=== PATIENT | female | born 1940 | race Caucasian/White ===

== ENCOUNTER 2020-09-29 11:20 | Outpatient (RCR) | payer MEDICARE, OTHER, SELFPAY | END 2020-09-29 23:59 | LOC: IMMUN 11:20 | PROVIDERS: PCP Internal Medicine; Visit Provider Family Medicine | DX: Z23 Encounter for immunization (principal) | CPT/HCPCS: 0011A; 0012A; 91301 ==

== ENCOUNTER 2022-04-13 20:24 | Inpatient (IN) | payer MEDICARE, OTHER, SELFPAY ==
[2022-04-13 20:25] VITALS: BP 87/48; PULSE 63; RESP 16; TEMP 35.9; O2SAT 95; BMI 37.8
[2022-04-13 20:29] VITALS: BP 87/48; PULSE 62; RESP 18; O2SAT 86
--- NOTE | 2022-04-13 20:37 | EKG12_ITS ---
Test Reason : DYSRHYTHMIA Blood Pressure : / mmHG Vent. Rate : 056 BPM Atrial Rate : 056 BPM P-R Int : 148 ms QRS Dur : 072 ms QT Int : 478 ms P-R-T Axes : 050 010 082 degrees QTc Int : 461 ms Sinus bradycardia Septal infarct , age undetermined Abnormal ECG Confirmed by ERROL RÍOS, JUANJOSE ([id number]), web editor NIMISHA MURO ([id number]) on 04/15/2022 10:04:26 AM Referred By: Confirmed By:JUANJOSE NORTON MD
[2022-04-13 20:52] VITALS: BP 77/40; PULSE 56; RESP 18; O2SAT 99
[2022-04-13] MEDS: Ondansetron 4 MG/2 ML Vial IV (20:52)
[2022-04-13] MEDS: 0.9% Normal Saline 1,000 ML 1000 ML IV (20:52)
[2022-04-13 20:59] LABS: Absolute Lymphocyte Count 2.34 X10^3/uL (0.83-4.51); Absolute Neutrophil Count 7.8 X10^3/uL (2.0-7.7); Basophil# 0.06 X10^3/uL; Basophil% 0.5 % (0-1); Eosinophil# 0.11 X10^3/uL; Hematocrit 39.2 % (37-47); Hemoglobin 12.4 g/dL (12.0-15.0); Lymphocyte # 2.34 X10^3/ul (0.83-4.51); Lymphocyte % 20.7 % (19-41); Mean Corp Hgb Conc 31.6 g/dL (32-36); Mean Corpuscular Hgb 29.9 pg (27.0-32.0); Mean Corpuscular Volume 94.5 fL (81-99); Mean Platelet Vol. 9.4 fl (6.2-12.0); Monocyte# 0.87 X10^3/uL; Monocyte% 7.7 % (0-10); NRBC Flagged by Analyzer 0 % (0-5); Neutrophil # 7.81 X10^3/uL (2.7-7.7); Neutrophil % 69.3 % (47-70); Platelet Count 296 K/mm3 (150-450); RBC Distribution Width CV 13.3 % (11.6-14.6); RBC Distribution Width SD 46.5 fl (35.1-43.9); Red Blood Count 4.15 M/mm3 (4.2-5.4); White Blood Count 11.3 K/mm3 (4.4-11.0)
--- NOTE | 2022-04-13 21:02 | EX.ED.DYSGE1 ---
HPI History of Present Illness Chief Complaint: Nausea/Vomiting Informant: patient, family and EMS Narrative Narrative: 81-year-old female states that she has felt chilled most of the day. States she really had been feeling well so she laid in bed for the better half of the day. She then went out to get pizza for dinner. She began to have abdominal cramping and went to have a bowel movement. While awaiting the bowel movement she began to get nauseous and started vomiting and getting lightheaded. She states she was very diaphoretic and felt like passing out. Upon arrival to the emergency department patient had a very large diarrheal movement. She states that she is feeling better but still does not feel back to herself. She notes that she has had a slight cough and a headache. No reported fevers. PFSH PFSH Allergy/AdvReac Type Severity Reaction Status Date / Time Tactdof-XFO-DiS Reductase Allergy Hives Verified 04/13/22 20:25 Inhibitor Social History (Updated 04/13/22 @ 21:[address] Rj Reardon, DO) Smoking Status: Former smoker substance use type: does not use ROS ROS ED Constitutional Constitutional ED: Reports chills; Denies fever(s) or weight loss Eyes Eyes: Denies change in vision or diplopia ENT ENT ED: Denies ear pain, rhinorrhea or sore throat Cardiovascular Cardiovascular: Reports other Details: Near syncope, ; Denies chest pain, orthopnea, palpitations or racing heartbeat Respiratory/Chest Respiratory/Chest: Reports cough and other; Denies dyspnea or orthopnea Gastrointestinal Gastrointestinal: Reports diarrhea, nausea and vomiting; Denies abdominal pain Genitourinary Genitourinary ED: Denies dysuria, hematuria or urinary frequency Musculoskeletal Musculoskeletal: Denies arthralgias or myalgias Integumentary Denies abscess or rash Neurologic Neurologic: Reports headache(s); Denies weakness Psychiatric Psychiatric: Denies anxiety, depression, suicidal ideation or suicidal thoughts Endocrine Endocrinology: Denies polydipsia, polyphagia or polyuria Allergic/Immunologic Allergic/Immunologic ED: Denies mouth swelling, tongue swelling or urticaria EXAM Physical Exam Const Vital Signs: 04/13/22 20:25 04/13/22 20:29 04/13/22 20:52 Temperature 96.6 F L Temperature Source Temporal Pulse Rate 63 62 56 L Respiratory Rate 16 18 18 Blood Pressure 87/48 L 87/48 L 77/40 L Blood Pressure Mean 61 61 52 Pulse Ox 95 86 99 Oxygen Delivery Method Room Air Room Air Room Air 04/13/22 22:36 Temperature Temperature Source Pulse Rate 59 L Respiratory Rate 18 Blood Pressure 137/48 H Blood Pressure Mean 77 Pulse Ox 96 Oxygen Delivery Method Room Air Positive well nourished and well developed General Appearance ED: well developed HEENT Reports normocephalic, head/scalp atraumatic and moist mucous membranes Eyes PERRL and EOMs intact bilaterally Neck no lymphadenopathy, supple and no JVD Resp normal respiratory effort and clear to auscultation bilaterally Cardio regular rate, regular rhythm and no murmurs GI normal to inspection, nondistended, normoactive bowel sounds and non-tender Palpation: soft Back/Spine no CVA tenderness and normal ROM Extremity normal to inspection General Extremety ED: Negative for edema General Extremity: Negative for edema Neuro oriented x3 and CN's II-XII intact bilaterally Sensorium / Orientation: alert Motor Exam: strength 5/5 throughout Psych mental status grossly normal Mood & Affect: Negative for depressed or tearful Skin no rashes or lesions noted and no wounds MDM MDM MDM Narrative Medical decision making narrative: My interpretation of the chest x-ray is no acute process. Patient's white count 11.3. Glucose 224 creatinine 1.52. She received IV fluids. Patient's blood pressure got better until her next episode of diarrhea and then it got better. And then she dropped again with the third episode of diarrhea. Stool was sent to the lab and a covid 19 PCR was sent. Lab Data Attestation: I reviewed the patient's lab results. Labs: Laboratory Results - last 24 hr 04/13/22 04/13/22 20:50 20:50 WBC 11.3 H RBC 4.15 L Hgb 12.4 Hct 39.2 MCV 94.5 MCH 29.9 MCHC 31.6 L RDW Std Deviation 46.5 H RDW Coeff of Imelda 13.3 Plt Count 296 MPV 9.4 Immature Gran % (Auto) 0.800 Neut % (Auto) 69.3 Lymph % (Auto) 20.7 [place] % (Auto) 7.7 Eos % (Auto) 1.0 Baso % (Auto) 0.5 Absolute Neuts (auto) 7.8 H Absolute Lymphs (auto) 2.34 Nucleated RBC % 0 Sodium 134 L Potassium 4.5 Chloride 102 Carbon Dioxide 21.0 Anion Gap 11 BUN 25 H Creatinine 1.52 H Estim Creat Clear Calc 36.30 Est GFR (MDRD) Af Amer 42 L Est GFR (MDRD) Non-Af 35 L BUN/Creatinine Ratio 16.4 Glucose 224 H Calcium 9.1 Total Bilirubin 0.40 AST 18 ALT 16 Alkaline Phosphatase 64 Total Protein 6.7 Albumin 3.2 Globulin 3.5 Albumin/Globulin Ratio 0.9 Radiography Diagnostic Testing: Clinical Impression(s) from Imaging Studies Chest X-Ray 04/13/22 21:32 IMPRESSION: 1. No evidence of acute cardiopulmonary disease. Degenerative and postsurgical changes as above. Electronically Signed: Louie Curiel DO at 22:49 EDT , EKG Initial EKG: Attestation: I personally reviewed and interpreted this EKG as follows: Comments: Sinus bradycardia with a ventricular rate of 56 bpm Discharge Plan Dx/Rx/DC Orders Clinical Impression: Vomiting and diarrhea, Vasovagal near-syncope Disposition Disposition: Acute Care [facility]
[2022-04-13 21:15] LABS: ALB/GLOB Ratio 0.9 RATIO (0.9-2.4); AST(SGOT) 18 U/L (15-37); Alanine Aminotransfer ALT/SGPT 16 U/L (13-56); Albumin, Serum 3.2 g/dL (3.2-5.0); Alkaline Phosphatase 64 U/L (45-117); Anion Gap 11 (5-15); BUN 25 mg/dL (7-18); BUN/Creat Ratio 16.4 RATIO (10-20); Calcium,Total 9.1 mg/dL (8.5-10.1); Chloride 102 mmol/L (98-107); Creatinine, Serum 1.52 mg/dL (0.55-1.02); EST Glomerular Filtration Rate 35 mL/min (>60); Est Glom Filt Rate - Afr Amer 42 mL/min (>60); Globulin 3.5 g/dL (2.2-4.2); Glucose 224 mg/dL (74-106); Potassium 4.5 mmol/L (3.5-5.1); Protein, Total 6.7 g/dL (6.4-8.2); Sodium Level 134 mmol/L (136-145)
--- NOTE | 2022-04-13 21:32 | RAD_ITS ---
INDICATION: near syncope EXAMINATION/TECHNIQUE: X-RAY - XR Chest 1 View COMPARISON: None. FINDINGS: LINES/DEVICES: None. Distal sternotomy wires from prior thoracotomy. Probable coronary stent projects over the left heart. LUNGS: Symmetric normal lung volumes. No airspace opacity or abnormal interstitial pattern. No nodule or mass. No pleural effusion or pneumothorax. MEDIASTINUM AND CARDIOVASCULAR STRUCTURES: Normal size and contour of the cardiomediastinal silhouette. No evidence of pulmonary vascular congestion. BONES AND SOFT TISSUES: No fracture or focal osseous lesion. Incompletely visualized spinal hardware. Significant degenerative changes bilateral shoulders. RAD/Chest 1 View (Portable) IMPRESSION: 1. No evidence of acute cardiopulmonary disease. Degenerative and postsurgical changes as above. Electronically Signed: Louie Curiel DO at 22:49 EDT ,
[2022-04-13 22:36] VITALS: BP 137/48; PULSE 59; RESP 18; O2SAT 96
[2022-04-13] MEDS: 0.9% Normal Saline 1,000 ML 999 ML IV (22:52)
[2022-04-13 22:55] VITALS: BP 122/86; PULSE 55; RESP 18; TEMP 36.7; O2SAT 99
--- NOTE | 2022-04-13 23:12 | HP.PCM.HOS_ITS ---
HPI - General General Date of Admission: 04/13/22 Date of Service: 04/13/22 Chief Complaint: Nausea, diarrhea. Patient also has episodes of hypotension and bradycardia, vasovagal attack HPI Narrative EMILI CAMACHO, is a 81 F who was brought to ED by EMS for nausea and diarrhea in the restaurant. Prior to that, she was feeling cold throughout the day and not feeling well. She went with the family for dinner in restaurant. After they h ave finished dinner, [place] she felt abdominal cramps did not feel good and went to bathroom. There, she did not had diarrhea but felt nauseated. After that in ED, she had 3 bouts of liquid watery bowel movement with no blood or mucus. She did not had vomiting. She was very diaphoretic, feeling like going to pass out. She has mild cough and headache. EMS vitals reported BP 77/50, heart rate 67/min, regular pulse ox 95% on room air. In ED, her vitals shows BP 87/48, heart rate 63, dropped 1 time 77/40, heart rate 56 and then improved to BP 137/48 heart rate 59 after volume resuscitation. Her heart rate and blood pressure drops on abdominal cramps and retching. She never had similar episode in the past. She has history of CABG and 5 stents and CHF. 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 She does not have any echo or other cardiac work-up in our record. In ED, twelve-lead EKG individually reviewed shows sinus bradycardia 56 bpm, QTC 461 ms, CT 148 ms. Chest x-ray independently reviewed and no evidence of acute cardiopulmonary abnormality. Labs reviewed and discussed in assessment and plan. PFSH Allergy/AdvReac Type Severity Reaction Status Date / Time [id number]-[id number] Reductase Allergy Hives Verified 04/13/22 20:25 Inhibitor Social History Smoking Status: Former smoker substance use type: does not use ROS ROS Narrative Constitutional: Reports fatigue and weakness. Extreme cold, mild cough and headache. HEENT: Reports systems reviewed and no addt'l complaints, except as documented Respiratory/Chest: Denies chest pain, chronic shortness of breath/dyspnea on exertion. Gastrointestinal: Denies coffee ground emesis, hematemesis or vomiting Genitourinary: Denies burning urination or new urinary tract symptoms Musculoskeletal: Right TKR. Bilateral hip and knee arthritis. Multiple fall, walks on wheeled walker. Does not climb stairs Neurologic: Denies seizure-like activity. No new weakness, numbness skin: No ulcer. No rash Endocrinology: Reports systems reviewed and no addt'l complaints, except as documented Hematologic/Lymphatic: Reports systems reviewed and no addt'l complaints, except as documented Rest 14 ROS are negative except as mentioned in HPI Vital Signs Vital Signs Vital Signs: 04/13/22 20:25 04/13/22 20:29 04/13/22 20:52 Temperature 96.6 F L Temperature Source Temporal Pulse Rate 63 62 56 L Respiratory Rate 16 18 18 Blood Pressure 87/48 L 87/48 L 77/40 L Blood Pressure Mean 61 61 52 Pulse Ox 95 86 99 Oxygen Delivery Method Room Air Room Air Room Air 04/13/22 22:36 04/13/22 22:55 Temperature 98.1 F Temperature Source Oral Pulse Rate 59 L 55 L Respiratory Rate 18 18 Blood Pressure 137/48 H 122/86 H Blood Pressure Mean 77 98 Pulse Ox 96 99 Oxygen Delivery Method Room Air Room Air Weight Weight: 180 lb 12.465 oz Body Mass Index (BMI) 37.8 Physical Exam Narrative General: Alert, Oriented x3, Cooperative, dehydrated HEENT: Atraumatic, PERRLA, EOMI, Normocephalic Oral: Oral mucosa dry. No Gingival or Mucosal Lesions/ Ulcerations Neck: Supple, No JVD, Negative Carotid Bruits Lungs: Air entry diminished in bilateral lung bases. No crepitation/rhonchi/wheezing. No hypoxia Cardiovascular: CABG scar. No pacemaker. Regular rate, Regular Rhythm, Normal S1, Normal S2, grade 4/6 early diastolic murmur over right second ICS, left second ICS. Systolic murmur over cardiac apex. Abdomen: Bowel Sounds Present, Soft, Non Tender, Non-Distended : No renal angle tenderness. No suprapubic tenderness. Extremities: Mild 1+ bilateral ankle edema, Capillary Refill Less than 3 Seconds Skin: No rashes, No breakdown Musculoskeletal: Right TKR scar. No Tenderness to Palpation of Joints or Extre mities Neurological: Cranial nerves II-XII grossly intact, DTR 2+/4 and Symmetrical, Neuro grossly intact Psych/Mental Status: Flat affect. Results Lab / Micro Data Result Diagrams: 04/13/22 20:50 04/13/22 20:50 Labs: Laboratory Results - last 24 hr 04/13/22 20:50: WBC 11.3 H, RBC 4.15 L, Hgb 12.4, Hct 39.2, MCV 94.5, MCH 29.9, MCHC 31.6 L, RDW Std Deviation 46.5 H, RDW Coeff of Imelda 13.3, Plt Count 296, MPV 9.4, Immature Gran % (Auto) 0.800, Neut % (Auto) 69.3, Lymph % (Auto) 20.7, [place] % (Auto) 7.7, Eos % (Auto) 1.0, Baso % (Auto) 0.5, Absolute Neuts (auto) 7.8 H, Absolute Lymphs (auto) 2.34, Nucleated RBC % 0 04/13/22 20:50: Sodium 134 L, Potassium 4.5, Chloride 102, Carbon Dioxide 21.0, Anion Gap 11, BUN 25 H, Creatinine 1.52 H, Estim Creat Clear Calc 36.30, Est GFR (MDRD) Af Amer 42 L, Est GFR (MDRD) Non-Af 35 L, BUN/Creatinine Ratio 16.4, Glucose 224 H, Calcium 9.1, Total Bilirubin 0.40, AST 18, ALT 16, Alkaline Phosphatase 64, Total Protein 6.7, Albumin 3.2, Globulin 3.5, Albumin/Globulin Ratio 0.9 Micro: Microbiology 04/13/22 20:50 Nasal Secretion SARS-CoV-2 Antigen (Rapid) - Final Radiology Impression Chest X-Ray 04/13/22 21:32 IMPRESSION: 1. No evidence of acute cardiopulmonary disease. Degenerative and postsurgical changes as above. Electronically Signed: Louie Curiel DO at 22:49 EDT , Assessment & Plan Assessment/Plan (1) Vasovagal near-syncope: (2) Acute gastroenteritis: PLAN: Plan This is a 81-year-old female admitted with severe diarrhea, nausea and increased exaggerated vasovagal reflex 1. Hypotension and bradycardia probably exacerbated vasovagal reflex from abdominal retching/cramps: Patient is being admitted in PCU for monitoring. Hold antihypertensive and other cardiac medications. IV fluid volume resuscitation. 2. Acute gastroenteritis probably viral infective: Patient other family members who ate victor manuel are not sick. Stool for C. difficile, occult blood, leukocytes, enteric bacterial panel and COVID PCR ordered. IV fluid volume resuscitation with Ringer lactate. Monitor intake and output. Monitor for volume overload. Diet full liquid and advance as per tolerated. 3. 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 She does not have chest pain. Chronically she is mild short of breath mainly on exertion with low functional capacity. PT and OT ordered. Reconciliation order does not show any home medications. 4. Elevated BUN/creatinine, unclear whether acute or chronic but suspect acute in view of hypokalemia: BUN 25, creatinine 1.52. No prior BUN/creatinine in our system. Mild hyponatremia sodium 134. Patient had IV fluid normal saline ED started on Ringer lactate. 5. Diabetes mellitus type 2: Glucose 224. Accu-Chek insulin is covered with Humalog sliding scale Living will/advanced directive/end of life care: Patient does have living will or advanced directive. His son is power of erisa attorney for health. After discussion of benefits/risks procedures involved with full code, DNR CC arrest and DNR CC, the patient patient is DNR CC arrest with no intubation and living will. Patient and 2 sons near the bedside agreed with that. Patient doesn't want artificial life support including intubation, tube feed, ventilator and/chest compression, central venous catheter, vasopressor and DC shock if needed Total time spent in [id number] encounter in discussion of advanced directive 16 minutes. 04/13/22 20:50: WBC 11.3 H, RBC 4.15 L, Hgb 12.4, Hct 39.2, MCV 94.5, MCH 29.9, MCHC 31.6 L, RDW Std Deviation 46.5 H, RDW Coeff of Imelda 13.3, Plt Count 296, MPV 9.4, Immature Gran % (Auto) 0.800, Neut % (Auto) 69.3, Lymph % (Auto) 20.7, [place] % (Auto) 7.7, Eos % (Auto) 1.0, Baso % (Auto) 0.5, Absolute Neuts (auto) 7.8 H, Absolute Lymphs (auto) 2.34, Nucleated RBC % 0 04/13/22 20:50: Sodium 134 L, Potassium 4.5, Chloride 102, Carbon Dioxide 21.0, Anion Gap 11, BUN 25 H, Creatinine 1.52 H, Estim Creat Clear Calc 36.30, Est GFR (MDRD) Af Amer 42 L, Est GFR (MDRD) Non-Af 35 L, BUN/Creatinine Ratio 16.4, Glucose 224 H, Calcium 9.1, Total Bilirubin 0.40, AST 18, ALT 16, Alkaline P hosphatase 64, Total Protein 6.7, Albumin 3.2, Globulin 3.5, Albumin/Globulin Ratio 0.9 Charges/Coding Visit Charges OBSV E&M: 20119 Initial observation care L3 Procedures Hospitalists Procedures: [id number] Advncd Care Plan 30 Min
[2022-04-14] VITALS (24 sets, daily range): BP systolic 92–179; BP diastolic 47–90; PULSE 73–117; RESP 18–28; TEMP 36.6–37.1; O2SAT 95–100; BMI 36.8
[2022-04-14 00:08] LABS: Magnesium 1.5 mg/dL (1.6-2.6); Phosphorus 4.2 mg/dL (2.5-4.9)
[2022-04-14] MEDS: Lactated Ringers 1,000 ML 125 ML IV ×2 (00:28→06:45)
--- NOTE | 2022-04-14 05:03 | EKG12_ITS ---
Test Reason : arrythmia Blood Pressure : / mmHG Vent. Rate : 100 BPM Atrial Rate : 100 BPM P-R Int : 158 ms QRS Dur : 084 ms QT Int : 352 ms P-R-T Axes : 060 014 125 degrees QTc Int : 454 ms Normal sinus rhythm Possible Left atrial enlargement Septal infarct , age undetermined ST & T wave abnormality, consider inferolateral ischemia Abnormal ECG Confirmed by SHLOMO RÍOS, ANA ([id number]), mapping editor NIMISHA MURO ([id number]) on 04/15/2022 2:04:17 PM Referred By: Jorge Confirmed By:ANA KEENAN MD
--- NOTE | 2022-04-14 05:04 | NURSING ---
Patient has change in ST segment on tele monitor. On assessment patient is c/o heartburn and just not feeling well. VSS. RT called and notified that PRN 12-lead EKG ordered. Will notify Dr. Zaman with 12 lead once completed by RT.
[2022-04-14] MEDS: Enoxaparin 30 MG/0.3 ML Syringe SC (06:17)
[2022-04-14 06:40] LABS: Bedside Glucose 191 mg/dL (74-106)
[2022-04-14] MEDS: Insulin Lispro 100 UNIT/ML INSULN.PEN SC (06:45)
[2022-04-14 07:00] LABS: Absolute Lymphocyte Count 0.67 X10^3/uL (0.83-4.51); Absolute Neutrophil Count 16.1 X10^3/uL (2.0-7.7); Basophil# 0.04 X10^3/uL; Basophil% 0.2 % (0-1); Hematocrit 33.2 % (37-47); Hemoglobin 10.8 g/dL (12.0-15.0); Lymphocyte # 0.67 X10^3/ul (0.83-4.51); Lymphocyte % 3.7 % (19-41); Mean Corp Hgb Conc 32.5 g/dL (32-36); Mean Corpuscular Hgb 29.9 pg (27.0-32.0); Mean Platelet Vol. 9.4 fl (6.2-12.0); Monocyte# 1.34 X10^3/uL; Monocyte% 7.3 % (0-10); NRBC Flagged by Analyzer 0 % (0-5); Neutrophil % 88.3 % (47-70); Platelet Count 273 K/mm3 (150-450); RBC Distribution Width CV 13.2 % (11.6-14.6); RBC Distribution Width SD 44.6 fl (35.1-43.9); Red Blood Count 3.61 M/mm3 (4.2-5.4); White Blood Count 18.2 K/mm3 (4.4-11.0)
[2022-04-14 07:15] LABS: Anion Gap 9 (5-15); BUN 30 mg/dL (7-18); BUN/Creat Ratio 20.8 RATIO (10-20); Calcium,Total 8.6 mg/dL (8.5-10.1); Chloride 103 mmol/L (98-107); Creatinine, Serum 1.44 mg/dL (0.55-1.02); EST Glomerular Filtration Rate 37 mL/min (>60); Est Glom Filt Rate - Afr Amer 45 mL/min (>60); Estimated Creatinine Clearance 36.73 ml/min; Glucose 191 mg/dL (74-106); Magnesium 1.2 mg/dL (1.6-2.6); Potassium 4.6 mmol/L (3.5-5.1); Sodium Level 132 mmol/L (136-145)
--- NOTE | 2022-04-14 08:40 | PN.HOSP_ITS ---
Subjective Subjective Patient reports ongoing abdominal generalized discomfort, worse in the lower quadrants with still some loose stools but lessened since initial ED presentation. Did discuss the fact the patient had onset of chest discomfort earlier in the morning at approximately 5:20 AM and she notes that this did seem to improve with dyspepsia medications, currently denying any further episodes of chest pain. Discussed patient with nursing staff and they did report a small amount of blood in her diarrhea previously. Discussed concerns over her EKG early in the morning with repeat performed which does appear improved but c onsiderable changes therefore plan of action instituted with cardiology consultation with discussion with Dr. Gutierrez and Dr. Osborne, aspirin load, Brilinta load, heparin bolus with drip with continued close monitoring given reported gastritis with potential blood in the stool with continued close hemoglobin monitoring. Patient understands this plan of care and at this time will remain n.p.o. and if any further concerns from a cardiac standpoint arise or recurrent chest pain will be taken to the cardiac catheterization lab. Patient denies fevers, chills, nausea, emesis as well as specifically dyspnea at time of evaluation but at approximately 11 AM further in the day she did have onset of some dyspnea. Objective Data Objective Data Vital Signs: Vital Signs Temp Pulse Resp BP Pulse Ox O2 Del Method 98.6 F 73 18 96/56 L 98 Room Air 04/14/22 09:02 04/14/22 09:02 04/14/22 09:02 04/14/22 09:02 04/14/22 09:02 04/14/22 09:02 Oxygen Delivery Method Room Air Weight: 173 lb 4.533 oz Body Mass Index (BMI) 36.8 Intake & Output: Intake and Output for Last 24 Hours 04/12/22 04/13/22 04/14/22 23:59 23:59 23:59 Intake Total 1999 1799.42 / 1799.42 Output Total Balance 1999 1797.42 / 1797.42 Lab / Micro Data Result Diagrams: 04/14/22 06:50 04/14/22 06:50 Labs: Laboratory Results - last 24 hr 04/13/22 20:50: WBC 11.3 H, RBC 4.15 L, Hgb 12.4, Hct 39.2, MCV 94.5, MCH 29.9, MCHC 31.6 L, RDW Std Deviation 46.5 H, RDW Coeff of Imelda 13.3, Plt Count 296, MPV 9.4, Immature Gran % (Auto) 0.800, Neut % (Auto) 69.3, Lymph % (Auto) 20.7, Rock % (Auto) 7.7, Eos % (Auto) 1.0, Baso % (Auto) 0.5, Absolute Neuts (auto) 7.8 H, Absolute Lymphs (auto) 2.34, Nucleated RBC % 0 04/13/22 20:50: Sodium 134 L, Potassium 4.5, Chloride 102, Carbon Dioxide 21.0, Anion Gap 11, BUN 25 H, Creatinine 1.52 H, Estim Creat Clear Calc 36.30, Est GFR (MDRD) Af Amer 42 L, Est GFR (MDRD) Non-Af 35 L, BUN/Creatinine Ratio 16.4, Glucose 224 H, Calcium 9.1, Total Bilirubin 0.40, AST 18, ALT 16, Alkaline Phosphatase 64, Total Protein 6.7, Albumin 3.2, Globulin 3.5, Albumin/Globulin Ratio 0.9 04/13/22 20:50: Phosphorus 4.2, Magnesium 1.5 L 04/13/22 22:58: COVID-19 (CHARLIE) Not Detected 04/14/22 06:13: POC Glucose 191 H 04/14/22 06:50: WBC 18.2 H, RBC 3.61 L, Hgb 10.8 L, Hct 33.2 L, MCV 92.0, MCH 29.9, MCHC 32.5, RDW Std Deviation 44.6 H, RDW Coeff of Imelda 13.2, Plt Count 273, MPV 9.4, Immature Gran % (Auto) 0.500, Neut % (Auto) 88.3 H, Lymph % (Auto) 3.7 L, Rock % (Auto) 7.3, Eos % (Auto) 0.0, Baso % (Auto) 0.2, Absolute Neuts (auto) 16.1 H, Absolute Lymphs (auto) 0.67 L, Nucleated RBC % 0 04/14/22 06:50: Sodium 132 L, Potassium 4.6, Chloride 103, Carbon Dioxide 20.0 L , Anion Gap 9, BUN 30 H, Creatinine 1.44 H, Estim Creat Clear Calc 36.73, Est GFR (MDRD) Af Amer 45 L, Est GFR (MDRD) Non-Af 37 L, BUN/Creatinine Ratio 20.8 H , Glucose 191 H, Calcium 8.6 04/14/22 06:50: Magnesium 1.2 L 04/14/22 06:50: B-Natriuretic Peptide 150.4 H 04/14/22 08:40: Troponin I High Sens 1998 H* 04/14/22 08:40: Magnesium 1.8 04/14/22 09:00: PT 14.3, INR 1.1, APTT 33.5 Micro: Microbiology 04/13/22 22:37 Stool Stool Lactoferrin - Final 04/13/22 22:37 Stool Enteric Bacteriology - Final 04/13/22 22:37 Stool C. difficile DNA Amplification - Final 04/13/22 20:50 Nasal Secretion SARS-CoV-2 Antigen (Rapid) - Final Radiography Diagnostic Testing: Radiology Impression Chest X-Ray 04/13/22 21:32 IMPRESSION: 1. No evidence of acute cardiopulmonary disease. Degenerative and postsurgical changes as above. Electronically Signed: Louie Curiel DO at 22:49 EDT , Physical Exam Narrative Physical Examination: General: Awake, alert, oriented x 3 and cooperative, seated upright in the PCU bed, fatigued, denies any current chest discomfort, recent loose stool with some lower abdominal cramping but improved now. Skin: Normal color, normal turgor, no icterus, no cyanosis except for occasional staged ecchymoses. HEENT: AT/NC, EOMI, PERRLA, moderately dry MM. Lungs: Diminished, greater bases, appropriate effort, no rales, ronchi or wheezing. Heart: Currently regular rate and rhythm; no gallop, rub audible, + notable . Abdomen: Soft, obese, generalized discomfort, potentially worse in the lower quadrants but no rebound or guarding, moderately distended, tympanitic, hyperac tive bowel sounds. Extremities: No cyanosis, clubbing, or edema. Neurological: Patient awake, alert, oriented as noted, cognitive function intact; pupils equally reactive to light and accommodation, cranial nerves II- XII grossly normal, moving all 4 extremities, no focal deficits, strength moderately to severely global decrease secondary to acute presentation and suspected underlying cardiac event. Psychiatric: Affect appears fatigued, no acute evidence of depressive or anxiety feelings. Assessment & Plan Assessment/Plan (1) NSTEMI, initial episode of care: PLAN: Plan The patient is an 81 y/o F w/ PMHx: Anxiety and Depression, Diastolic CHF, CAD s/p CABG x 4 and PCI, HTN, HLD, Diabetes mellitus type II, Former tobacco use, Chronic normocytic anemia, CKD stage III unclear subtype who presents to the [facility] ED on 04/13/22 with history of recently eating in a restaurant with her family with onset of significant abdominal cramps with nausea and liquidy watery bowel movements with episode of hypotension, bradycardia and vasovagal prompting ED evaluation. #1. Chest Pain w/ Acute NSTEMI with concern for Acute Decompensated concurrent Diastolic CHF exacerbation/ischemic cardiomyopathy associated with acute injury: EKG w/ significant diffuse ischemic changes noted on EKG at 5:25 AM sign ificantly changed from admission EKG which was noted to be significant for sinus bradycardia only with no acute evidence of ischemia at that time therefore repeat immediate stat 8:30 AM repeat EKG obtained and fortunately appeared somewhat improved. Given significant findings immediately gave patient full- strength aspirin, initiated heparin drip with bolus as well as a Brilinta load and immediately reviewed EKGs with Dr. Osborne, cardiology and also immediately contacted Dr. Gutierrez on STEMI call who reviewed EKGs and felt that patient was not consistent with a STEMI but certainly had significant ischemic findings and recommended medical therapy. Given patient history of small amount of blood with her diarrhea we will maintain on cycled H&H's and closely monitor output which was discussed with nursing staff. Troponin obtained in initial 1997 with most recent repeat 3230. At approximately 11:30 AM patient became dyspneic therefore Dr. Osborne administered Lasix 20 mg IV x1 and given blood pressures are appropriate at this time will transition to the ICU for a nitroglycerin drip usage with small battery plate assembler consulation also requested. Will place on BIPAP also to assist. Will request small battery plate assembler consultation. Admission magnesium low 1.5 with supplementation overnight given, repeat this morning 1.8. FLP requested. BNP obtained and noted be 150.4. Echocardiogram requested w/ last noted [facility] system ECHO 09/14/19 with mildly increased wall LV thickness, normal cavity size, normal systolic function, EF 60 to 65%, no regional wall motion abnormalities, aortic valve with transvalvular velocity increased with mild stenosis, 1+ regurgitation, mean systolic gradient 13 mmHg, peak systolic gradient 26 mmHg, mitral valve moderately calcified, mild MR, mildly dilated LA, RVSP 31 mmHg, mild PV regurgitation, mild TV regurgitation, RA pressure 10 mmHg. Will maintain n.p.o. status, given plan diuresis initial judicious IV fluids have been discontinued. Low threshold for patient to be transition to cardiac catheterization lab per discussion with corporate claims examiner team. Fortunately was able to obtain records from clinic [facility] system on most recent cardiac intervention history. ASA, NG, morphine. #2. N/V/D, Gastroenteritis: Upon presentation patient history initially concern for gastroenteritis, unclear potentially related with #1 or food related, enteric panel negative, C. difficile negative, initiated on antidiarrheal regimen, initially hydrated however given onset of mild overload is noted number 1 will discontinue and continue to closely monitor. Patient WBC with significant elevation with left shift therefore be cautious IV Zosyn therapy has been initiated. Patient currently with no rebound or guarding and generalized discomfort to the abdomen on exam and given acute presentation #1 we will hold off on immediate imaging. Will obtain lactic acid level. Will maintain on IV PPI while n.p.o. status and given #2. #3. Acute on Chronic anemia, normocytic in the setting of #2: Complicates presentation, admission hemoglobin was 12.4 but she was notably dehydrated at that time, repeat a.m. 04/14/2022 hemoglobin 10.8, given some blood noted in the diarrhea will cycle H&H's to be cautious especially given medications administered given significant #1 presentation. Currently maintained also on IV PPI with n.p.o. status. #4. CAD: From [facility] records, patient s/p Annette 06/17/2007 w/ GAINES to LAD, v to PDA, v to Dg and free left radial to OM and PCI stents at F 01/25/[address] Clarence Merritt GIOVANNA to RI and to 1st Dg and PCI 3 stents to prox , mid and distal RCA 05/15/2009, will continue asa, brillinta loaded as noted as unclear regimen initially, from records pulled patient on daily plavix only from current list, holding metoprolol, lisinopril given hypotension and going to attempt as noted NG usage, statin allergy noted, continue zetia, continue Ranexa. #5. Hypertension: Although patient's blood pressure improved initial presentation with vasovagal event following IV fluids it is still on the low threshold, attempting as noted transition to the ICU for nitroglycerin usage, holding patient home regimen which from now review of outpatient record include (Norvasc, bumetanide, isosorbide, lisinopril, metoprolol). We will add these b ack as able. #6. Hyperlipidemia: We will continue patient home Zetia regimen, statin intolerance noted, FLP in AM. #7. Diabetes mellitus type II: Hold oral home regimen, will currently maintain n.p.o. status, while n.p.o. we will continue accu checks w/ ISS. #8. Chronic Kidney Disease Stage III, unclear subtype: Admission BUN/Cr 25/1.52, baseline renal function from review of labs per Dr. Salas range 1.3-1.5 primarily, repeat BMP in AM. #9. Anxiety and depression: We will continue patient home citalopram regimen. #10. GERD: As noted placed on IV PPI. #11. Former tobacco use: Encourage continued tobacco cessation. #12. DVT prophylaxis: SCDs, heparin bolus and drip initiated as noted and continued with close continued hemoglobin trending and monitoring of bowel functions. #13. CODE status: Patient ADAMA is her son and living will is currently in place. DNR-CCA, no intubation status. Charges/Coding Visit Charges Inpatient E&M: 43957 Subs Hosp L3
[2022-04-14] MEDS: Aspirin 325 MG Tablet PO (08:55)
--- NOTE | 2022-04-14 08:55 | EKG12_ITS ---
Test Reason : Dysrhythmia Blood Pressure : / mmHG Vent. Rate : 107 BPM Atrial Rate : 107 BPM P-R Int : 162 ms QRS Dur : 094 ms QT Int : 332 ms P-R-T Axes : 074 009 196 degrees QTc Int : 443 ms Sinus tachycardia Septal infarct (cited on or before 10-DEC-2010) Marked ST abnormality, possible inferior subendocardial injury Marked ST abnormality, possible anterolateral subendocardial injury Abnormal ECG Confirmed by SHLOMO RÍOS, ANA ([id number]), art editor NIMISHA MURO ([id number]) on 04/15/2022 2:04:39 PM Referred By: Austyn Confirmed By:ANA KEENAN MD
[2022-04-14] MEDS: TICAGRELOR 90 MG TABLET 180 MG PO (09:19)
[2022-04-14 09:24] LABS: Troponin-I HS 1998 pg/mL (3.0-54.0)
[2022-04-14 09:25] LABS: BNP,B-Type NATRIURETIC PEPTIDE 150.4 pg/mL (0-100)
[2022-04-14 09:34] LABS: International Normalized Ratio 1.1; Prothrombin Time (Protime)PT. 14.3 SECONDS (11.7-14.9)
[2022-04-14 09:35] LABS: Partial Thromboplast Time 33.5 Seconds (24.1-36.2)
[2022-04-14] MEDS: HEPARIN/D5w 25,000 UNITS 25,000 UNITS/250 ML IV.SOLN. 11 UNITS CONT INF (09:49)
[2022-04-14] MEDS: Heparin Injection (Vial) 5,000 UNIT/ML VIAL 5000 UNIT IV (09:49)
[2022-04-14 10:16] LABS: Magnesium 1.8 mg/dL (1.6-2.6)
[2022-04-14] MEDS: 0.9% Normal Saline 1,000 ML 75 ML IV (11:00)
[2022-04-14 11:05] LABS: Troponin-I HS 3230 pg/mL (3.0-54.0)
[2022-04-14 11:31] LABS: Bedside Glucose 165 mg/dL (74-106)
--- NOTE | 2022-04-14 11:48 | CON.PCM.CA_ITS ---
Assessment & Plan Assessment/Plan (1) NSTEMI, initial episode of care: PLAN: The patient has demonstrated findings based upon her symptoms and her objective studies compatible with an acute non-ST segment elevation VA. The patient has been monitored. She will continue to be monitored and have follow-up cardiac enzymes and ECGs as deemed appropriate. The patient can have additional noninvasive and invasive studies as deemed appropriate. The patient's case was discussed with Dr. Gutierrez of interventional cardiology. At the present time he recommended continued medical management and monitoring and did not recommend urgent/emergent diagnostic cardiac catheterization barring a change in the patient's clinical course. Thus, the patient will continue medical therapy which will include agents such as aspirin, antiplatelets, anticoagulants, nitrates as needed, beta-blockers, lipid-lowering agents, etc. If the patient's clinical course alters that she may need to be considered for cardiac catheterization sooner than later. Also consideration will have to be given, based upon her extensive cardiovascular history as to whether such a procedure would be performed at [facility] versus requesting transfer to a tertiary care center for additional evaluation and care. (2) Aortic valve stenosis, acquired: PLAN: The patient does have a history of aortic valve stenosis based upon ex amination and her previous noninvasive and invasive studies available for review. At the moment she will continue to be followed. It would not be unreasonable to continue to monitor this with echocardiographic studies for progression of disease. (3) HLD (hyperlipidemia): PLAN: The patient should continue lipid-lowering therapy as tolerated. (4) HTN (hypertension): PLAN: The patient's blood pressure should be monitored. She will continue medical management with adjustment as needed (5) Acute gastroenteritis: PLAN: The patient presented with concerns of acute gastroenteritis. It is unclear as to whether this is all related to her acute non-ST segment elevation VA versus a separate condition exacerbated her underlying cardiovascular condition leading to her acute non-ST segment elevation VA. At the moment she will have to be monitored for any recurrent symptoms especially any hemorrhagic issues as she is starting antiplatelet and anticoagulant therapy. Addt'l Comments The patient's case was discussed and reviewed with the patient, Dr. Patel, and Dr. Gutierrez of interventional cardiology. This note was generated using a voice recognition system and there may be incorrect words, spelling or punctuation that were not noted when reviewing the office note prior to saving. HPI Consult Data Date of Consult: 04/14/22 HPI Narrative HPI Narrative: EMILI CAMACHO, is a 81 year old white female who presents for cardiovascular consultation based upon concerns of symptoms of heartburn , findings of abnormal cardiac enzymes, superimposed upon a history of underlying CAD, multiple PCI procedures, CABG, valvular heart disease/aortic valve stenosis, hyperlipidemia, and hypertension, who presented with concerns of gastrointestinal discomfort with nausea, emesis, loose bowel movements with hematochezia. She states that she had developed what she considers to be heartburn the associated abdominal symptoms. She felt as if she might lose consciousness but does not believe she did lose consciousness. She subsequently presented to [facility] emergency department for additional evaluation and care. It appears there were concerns that she may have been experiencing a gastroenteritis. She was placed in the room for further evaluation and care. Initially from a cardiac standpoint the that demonstrated sinus bradycardia, septal VA of indeterminate age, and no definitive acute electrocardiographic changes. He had a follow-up ECG from this a.m. At that time she demonstrated findings compatible with sinus tachycardia with a septal VA of indeterminate age and associated ST and T wave abnormalities appearing compatible for concerns of subendocardial injury in the jjwrmzhh-yqbcbtm-pkblnldz leads as well as an element of ST segment elevation in isolated lead aVR. She was evaluated by internal medicine. At that time she was not complaining of her ongoing heartburn. She stated she felt somewhat improved compared to her previous presentation/symptoms. A request was made for cardiac enzyme levels and a follow-up ECG. A follow-up ECG was performed. At that time she was noted to be in sinus rhythm with the aforementioned septal VA of indeterminate age pattern and continued evidence of ST and T wave abnormalities-compared to her previous ECG they appear to be less prominent with respect to concerns of the subendocardial injury pattern in the feugxuke-fnhokfg-cdqblxlh leads as well as the aforementioned ST segment elevation in isolated lead aVR. She was initiated on additional cardiovascular medical therapy which included aspirin, antiplatelet therapy, and anticoagulant therapy. Cardiovascular consultation was requested. At the time of cardiovascular consultation the patient stated she was not having her ongoing heartburn sensation. She stated overall she felt better than her initial presentation. She did note that with her previous cardiovascular presentation she did have heartburn . She was not complaining of ongoing acute shortness of breath/dyspnea, ongoing nausea/emesis, or diaphoresis. The patient states she has been taking her cardiac medications as prescribed. She is not sure if she took her antiplatelet therapy with respect to clopidog rel/Plavix yesterday. Subsequently her cardiac enzymes were noted. Her initial high-sensitivity tr oponin I level was reported at 1997 with a subsequent level of 3230. The patient stated she has undergone previous cardiovascular evaluation which included a combination of PCI and CABG. Based upon medical records available it appears that the patient underwent evaluation and care at [facility] in [place], [place] on 06-17-2007 with a CABG. At that point in time she received a GAINES to the LAD, and SVG to the diagonal branch, a free radial to the OM branch, and an SVG to the PDA. It appears over time she has had multiple repeat cardiac catheterization procedures at various institutions she states has included [facility], [facility] in [place], [place], as well as [facility]. According to information available a cardiac catheterization was performed on 01-03-2009 which demonstrated her GAINES to the LAD to be patent and the other 3 grafts to be occluded with an LVEF of 60 to 65%. It appears she proceeded with a [facility] PCI on 01-25-2009 with a Xience drug-eluting stent to the ramus intermedius and to the first diagonal branch. It appears she had a repeat cardiac catheterization/PCI procedure on 05-15-2009 where she received PCI/stents to the RCA system. Another cardiac catheterization was listed on 09-26-2009. At that time a comment is made that the LAD had mid 90% stenosis and the GAINES to the LAD was patent, and there was mild disease in other vessels . A cardiac catheterization procedure was reported on 08-05-2012 at [facility] in [place], [place]. At that point in time the GAINES to the LAD was patent with distal LAD 99% stenosis with mild CAD elsewhere . The LVEF was listed at 60%. On 09-08-2018 apparently underwent a right/left cardiac catheterization. GAINES to the LAD was patent. The other 3 grafts were occluded. There was severe three-vessel CAD. There was normal LV systolic function. There was minimal aortic valve stenosis reported. She states she follows with the cardiovascular team from [facility], in [facility] Medical History (Updated 04/14/22 @ 12:[address] Rafael Osborne MD) CAD (coronary artery disease) Chronic anemia CKD (chronic kidney disease), stage III Diabetes mellitus, type 2 Diastolic CHF Former tobacco use GERD (gastroesophageal reflux disease) Glaucoma HLD (hyperlipidemia) HTN (hypertension) Home Medications amlodipine 5 mg tablet 5 mg PO DAILY Check with primary doctor 04/14/22 [History Last Taken Unknown] citalopram 20 mg tablet 20 mg PO DAILY Check with primary doctor 04/14/22 [H istory Last Taken Unknown] clopidogrel 75 mg tablet 75 mg PO DAILY Check with primary doctor 04/14/22 [History Last Taken Unknown] isosorbide mononitrate 60 mg tablet,extended release 24 hr 60 mg PO BID Check with primary doctor 04/14/22 [History Last Taken Unknown] latanoprost 0.005 % eye drops 1 drp EACH EYE QHS Check with primary doctor 04/14/22 [History Last Taken Unknown] lisinopril 20 mg tablet 20 mg PO DAILY Check with primary doctor 04/14/22 [History Last Taken Unknown] metformin 500 mg tablet 500 mg PO BID Check with primary doctor 04/14/22 [History Last Taken Unknown] metoprolol succinate 100 mg tablet,extended release 24 hr 100 mg PO DAILY Check with primary doctor 04/14/22 [History Last Taken Unknown] pantoprazole 40 mg tablet,delayed release 40 mg PO DAILY Check with primary d octor 04/14/22 [History Last Taken Unknown] ranolazine 500 mg tablet,extended release,12 hr 500 mg PO BID Check with primary doctor 04/14/22 [History Last Taken Unknown] Allergy/AdvReac Type Severity Reaction Status Date / Time [id number]-[id number] Reductase Allergy Hives Verified 04/13/22 20:25 Inhibitor Family History (Updated 04/14/22 @ 09:[address] Shy Patel MD) Mother Heart disease Father Heart disease Surgical History (Updated 04/14/22 @ 09:[address] Shy Patel MD) History of total right knee replacement Hx of coronary angioplasty S/P CABG x 4 S/P lumbar fusion Social History (Updated 04/14/22 @ 09:[address] Shy Patel MD) household members: none Smoking Status: Former smoker alcohol intake: never substance use type: does not use ROS Constitutional Constitutional: Reports as per HPI Eyes Eyes: Reports as per HPI ENT HEENT: Reports as per HPI Cardiovascular Cardiovascular: Reports chest pain, chest pain at rest, dyspnea, nausea and vomiting Respiratory/Chest Respiratory/Chest: Reports dyspnea Gastrointestinal Gastrointestinal: Reports heartburn, hematochezia, nausea and vomiting Genitourinary Genitourinary: Reports as per HPI Musculoskeletal Musculoskeletal: Reports as per HPI Integumentary Integumentary: Reports as per HPI Neurologic Neurologic: Reports as per HPI Psychiatric Psychiatric: Reports as per HPI Physical Exam Const alert and oriented x3 Orientation / Consciousness: awake HEENT normocephalic, head/scalp atraumatic and hearing grossly normal bilaterally Eyes PERRL, EOMs intact bilaterally, conjunctivae normal and no scleral icterus Neck full ROM, supple and no JVD Chest Chest: midline sternotomy incision Resp Auscultation: diminished lung sounds bilateral lower Cardio regular rate, regular rhythm and S1 normal heart sound Heart Sounds: murmur systolic III/ harsh mid left sternal border, LVOT and sternal notch and abnormal sounds diminished A2 GI normal to inspection, nondistended, normoactive bowel sounds Extremity no pedal edema Skin no rashes or lesions noted Psych mental status grossly normal Risk Stratification Risk Stratification Applicable: Yes Age >/= 65: Yes >/= 3 CAD Risk Factors (HTN, HLD, DM, family hx of CAD, or current smoker): Yes Aspirin Use in the Past 7 Days: Yes Severe Angina (>/= episodes in 24 hours): Yes EKG ST Changes >/= 0.5mm: Yes Positive Cardiac Marker: Yes DOMINIQUE Risk Stratification Score: 6 DOMINIQUE % Risk: 41% Risk Procedure Criteria Type of Procedure Procedure Type: Elective Elective Risks - COVID COVID Risk Discussion: The surgeon/proceduralist and patient have discussed in detail the risk of exposure to and/or potential harm posed by the COVID-19 virus with having a surgery/procedure at this time versus the risk of delaying the surgery/procedure. It is not possible to know either the risk of delaying the surgery or procedure or chance of getting an infection with perfect accuracy, but a joint decision was made between the patient and the surgeon/proceduralist to proceed at this time with the scheduled surgery/procedure as indicated on the consent form. Objective Data Vital Signs: Vital Signs Temp Pulse Resp BP Pulse Ox O2 Del Method 98.6 F 73 18 96/56 L 98 Room Air 04/14/22 09:02 04/14/22 09:02 04/14/22 09:02 04/14/22 09:02 04/14/22 09:02 04/14/22 09:02 Oxygen Delivery Method Room Air Weight: 173 lb 4.533 oz Body Mass Index (BMI) 36.8 Intake & Output: Intake and Output for Last 24 Hours 04/12/22 04/13/22 04/14/22 23:59 23:59 23:59 Intake Total 1999 1874.42 / 1874.42 Output Total Balance 1999 1872.42 / 1872.42 Lab / Micro Data Result Diagrams: 04/14/22 06:50 04/14/22 06:50 Labs: Laboratory Results - last 24 hr 04/13/22 20:50: WBC 11.3 H, RBC 4.15 L, Hgb 12.4, Hct 39.2, MCV 94.5, MCH 29.9, MCHC 31.6 L, RDW Std Deviation 46.5 H, RDW Coeff of Imelda 13.3, Plt Count 296, MPV 9.4, Immature Gran % (Auto) 0.800, Neut % (Auto) 69.3, Lymph % (Auto) 20.7, [place] % (Auto) 7.7, Eos % (Auto) 1.0, Baso % (Auto) 0.5, Absolute Neuts (auto) 7.8 H, Absolute Lymphs (auto) 2.34, Nucleated RBC % 0 04/13/22 20:50: Sodium 134 L, Potassium 4.5, Chloride 102, Carbon Dioxide 21.0, Anion Gap 11, BUN 25 H, Creatinine 1.52 H, Estim Creat Clear Calc 36.30, Est GFR (MDRD) Af Amer 42 L, Est GFR (MDRD) Non-Af 35 L, BUN/Creatinine Ratio 16.4, Glucose 224 H, Calcium 9.1, Total Bilirubin 0.40, AST 18, ALT 16, Alkaline Phosphatase 64, Total Protein 6.7, Albumin 3.2, Globulin 3.5, Albumin/Globulin Ratio 0.9 04/13/22 20:50: Phosphorus 4.2, Magnesium 1.5 L 04/13/22 22:58: COVID-19 (CHARLIE) Not Detected 04/14/22 06:13: POC Glucose 191 H 04/14/22 06:50: WBC 18.2 H, RBC 3.61 L, Hgb 10.8 L, Hct 33.2 L, MCV 92.0, MCH 29.9, MCHC 32.5, RDW Std Deviation 44.6 H, RDW Coeff of Imelda 13.2, Plt Count 273, MPV 9.4, Immature Gran % (Auto) 0.500, Neut % (Auto) 88.3 H, Lymph % (Auto) 3.7 L, [place] % (Auto) 7.3, Eos % (Auto) 0.0, Baso % (Auto) 0.2, Absolute Neuts (auto) 16.1 H, Absolute Lymphs (auto) 0.67 L, Nucleated RBC % 0 04/14/22 06:50: Sodium 132 L, Potassium 4.6, Chloride 103, Carbon Dioxide 20.0 L , Anion Gap 9, BUN 30 H, Creatinine 1.44 H, Estim Creat Clear Calc 36.73, Est GFR (MDRD) Af Amer 45 L, Est GFR (MDRD) Non-Af 37 L, BUN/Creatinine Ratio 20.8 H , Glucose 191 H, Calcium 8.6 04/14/22 06:50: Magnesium 1.2 L 04/14/22 06:50: B-Natriuretic Peptide 150.4 H 04/14/22 08:40: Troponin I High Sens 1998 H* 04/14/22 08:40: Magnesium 1.8 04/14/22 09:00: PT 14.3, INR 1.1, APTT 33.5 04/14/22 10:37: Troponin I High Sens 3230 H* 04/14/22 11:08: POC Glucose 165 H Micro: Microbiology 04/13/22 22:37 Stool Stool Lactoferrin - Final 04/13/22 22:37 Stool Enteric Bacteriology - Final 04/13/22 22:37 Stool C. difficile DNA Amplification - Final 04/13/22 20:50 Nasal Secretion SARS-CoV-2 Antigen (Rapid) - Final Cardiology Labs/Tests 04/13/22 20:50: WBC 11.3 H, RBC 4.15 L, Hgb 12.4, Hct 39.2, MCV 94.5, MCH 29.9, MCHC 31.6 L, Plt Count 296, MPV 9.4, Immature Gran % (Auto) 0.800, Neut % (Auto) 69.3, Lymph % (Auto) 20.7, [place] % (Auto) 7.7, Eos % (Auto) 1.0, Baso % (Auto) 0.5, Absolute Neuts (auto) 7.8 H, Nucleated RBC % 0 04/13/22 20:50: Sodium 134 L, Potassium 4.5, Chloride 102, Carbon Dioxide 21.0, Anion Gap 11, BUN 25 H, Creatinine 1.52 H, Est GFR (MDRD) Af Amer 42 L, Est GFR (MDRD) Non-Af 35 L, BUN/Creatinine Ratio 16.4, Glucose 224 H, Calcium 9.1, Total Bilirubin 0.40 04/13/22 20:50: Phosphorus 4.2, Magnesium 1.5 L 04/14/22 06:50: WBC 18.2 H, RBC 3.61 L, Hgb 10.8 L, Hct 33.2 L, MCV 92.0, MCH 29.9, MCHC 32.5, Plt Count 273, MPV 9.4, Immature Gran % (Auto) 0.500, Neut % (Auto) 88.3 H, Lymph % (Auto) 3.7 L, [place] % (Auto) 7.3, Eos % (Auto) 0.0, Baso % (Auto) 0.2, Absolute Neuts (auto) 16.1 H, Nucleated RBC % 0 04/14/22 06:50: Sodium 132 L, Potassium 4.6, Chloride 103, Carbon Dioxide 20.0 L , Anion Gap 9, BUN 30 H, Creatinine 1.44 H, Est GFR (MDRD) Af Amer 45 L, Est GFR (MDRD) Non-Af 37 L, BUN/Creatinine Ratio 20.8 H, Glucose 191 H, Calcium 8.6 04/14/22 06:50: Magnesium 1.2 L 04/14/22 06:50: B-Natriuretic Peptide 150.4 H 04/14/22 08:40: Magnesium 1.8 04/14/22 09:00: PT 14.3, INR 1.1, APTT 33.5 Rhythm: Sinus rhythm EKG: As noted above ECHO: Based upon outside medical records available for review: Date uncertain: Left ventricle: 5% Left atrium: Mildly dilated Mitral valve: Annulus: Moderately calcified: Mild MR Tricuspid valve: Mild TR Aortic valve: Mild stenosis: Mild regurgitation Pulmonic valve: Mild CA Stress Test: 01-16-2017: Small anteroapical scar EF 68% Cardiac Cath: Cardiac catheterization reports from outside hospitals as noted above Another cardiac catheterization report: Date uncertain: Left ventricle: Normal LVEF 60 to 65% LAD: Proximal 70% stenosis; 100% stenosis First diagonal branch: Mid 70% stenosis; distal 50% stenosis LCx: Proximal 75% stenosis First OM: Proximal 90% stenosis Right coronary artery: Mid 60% stenosis Right PDA: 100% stenosis Ramus intermedius: Ostial 75% stenosis; proximal 70% stenosis GAINES to the LAD patent with distal LAD at apex after graft anastomosis 90% stenosis All 3 SVG occluded Minimal aortic valve stenosis Moderate pulmonary hypertension and pulmonary capillary wedge pressure PCI: . As noted above CT Surgery: 06-17-2007: [place], [place] GAINES to the LAD SVG to the diagonal branch Left radial to the OM SVG to the PDA Radiography Diagnostic Testing: Radiology Impression Chest X-Ray 04/13/22 21:32 IMPRESSION: 1. No evidence of acute cardiopulmonary disease. Degenerative and postsurgical changes as above. Electronically Signed: Louie Curiel DO at 22:49 EDT ,
[2022-04-14] MEDS: Nitroglycerin Infusion 250 ML 3 MG CONT INF (12:47)
[2022-04-14] MEDS: Furosemide 20 MG/2 ML VIAL IV (12:55)
--- NOTE | 2022-04-14 13:13 | PCM.DC.SUM ---
Providers Date of Admission: 04/14/22 Date of Discharge: 04/14/22 Primary Care Physician: Dr. Genna Mead, Consultations 04/14/22 08:53 Consult: Cardiology Routine Consulting Provider: Rafael Osborne/Dr. Gutierrez Reason for Consult: acute EKG changes EMERGENT Consult: No MD Notified: Yes Date Notified: 04/14/22 Time Notified: 08:40 Method of Notification: Text Comments:: MD to MD 04/14/22 11:20 Consult: Retail Inventory Control Clerk / Pulmonary Medicine Routine Consulting Provider: Sheng hCristianson Reason for Consult: Admit Gastro, Hypotensive/Vasovagal, EKG changes/NSTEMI EMERGENT Consult: No MD Notified: Yes Date Notified: 04/14/22 Time Notified: 11:20 Method of Notification: Text Reason For Visit: NSTEMI, Hypotension, Vasovagal, Gastroenteritis Diagnosis Discharge Diagnosis (1) NSTEMI, initial episode of care: Status: Acute Code(s): I21.4 - Non-ST elevation (NSTEMI) myocardial infarction (2) Aortic valve stenosis, acquired: Status: Acute Code(s): I35.0 - Nonrheumatic aortic (valve) stenosis (3) HLD (hyperlipidemia): Status: Acute Code(s): E78.5 - Hyperlipidemia, unspecified (4) HTN (hypertension): Status: Chronic Code(s): I10 - Essential (primary) hypertension (5) Acute gastroenteritis: Status: Acute Code(s): K52.9 - Noninfective gastroenteritis and colitis, unspecified Medications at Discharge Home Medications amlodipine 5 mg tablet 5 mg PO DAILY Check with primary doctor 04/14/22 citalopram 20 mg tablet 20 mg PO DAILY Check with primary doctor 04/14/22 clopidogrel 75 mg tablet 75 mg PO DAILY Check with primary doctor 04/14/22 isosorbide mononitrate 60 mg tablet,extended release 24 hr 60 mg PO BID Check with primary doctor 04/14/22 latanoprost 0.005 % eye drops 1 drp EACH EYE QHS Check with primary doctor 04/14/22 lisinopril 20 mg tablet 20 mg PO DAILY Check with primary doctor 04/14/22 metformin 500 mg tablet 500 mg PO BID Check with primary doctor 04/14/22 metoprolol succinate 100 mg tablet,extended release 24 hr 100 mg PO DAILY Check with primary doctor 04/14/22 pantoprazole 40 mg tablet,delayed release 40 mg PO DAILY Check with primary doctor 04/14/22 ranolazine 500 mg tablet,extended release,12 hr 500 mg PO BID Check with primary doctor 04/14/22 Hospital Course Operations None Procedures EKG and - (ICU Transition with BIPAP, NG drip, IV lasix.) Summary of Care Provided Minutes Spent on Discharge: 45 Hospital Course: ATTENDING PHYSICIAN DISCHARGE NOTE: Discharge Diagnoses: #1.? Chest Pain w/ Acute NSTEMI with concern for Acute Decompensated concurrent Diastolic CHF exacerbation/ischemic cardiomyopathy associated with acute injury #2.? N/V/D, Gastroenteritis, Unclear organism with acute hypotensive episode, vasovagal event #3.? Acute on Chronic anemia, normocytic #4.? CAD s/p Annette 06/17/2007 w/ GAINES to LAD, v to PDA, v to Dg and free left radial to OM and PCI stents at [facility] 01/25/[address] Clarence Merritt GIOVANNA to RI and to 1st Dg and PCI 3 stents to prox , mid and distal RCA 05/15/2009 #5.? Hypertension #6.? Hyperlipidemia #7.? Diabetes mellitus type II #8.? Chronic Kidney Disease Stage III, unclear subtype (baseline renal function from review of labs per Dr. Salas range 1.3-1.5 primarily) #9.? Anxiety and depression #10.? GERD #11.? Former tobacco use #12.? CODE status: Patient ADAMA is her son and living will is currently in place. DNR-CCA, no intubation status. Discharge Summary: The patient is an 81 y/o F w/ PMHx: Anxiety and Depression, Diastolic CHF, CAD s/p CABG x 4 and PCI, HTN, HLD, Diabetes mellitus type II, Former tobacco use, Chronic normocytic anemia, CKD stage III unclear subtype who presented to the [facility] ED on 04/13/22 with history of recently eating in a restaurant with her family with onset of significant abdominal cramps with nausea and liquidy watery bowel movements with episode of hypotension, bradycardia and vasovagal prompting ED evaluation. EKG w/ significant diffuse ischemic changes noted on EKG at 5:25 AM significantly changed from admission EKG which was noted to be significant for sinus bradycardia only with no acute evidence of ischemia at that time therefore repeat immediate stat 8:30 AM repeat EKG obtained and fortunately appeared somewhat improved.? Given significant findings immediately gave patient full-strength aspirin, initiated heparin drip with bolus as well as a Brilinta load and immediately reviewed EKGs with Dr. Osborne, cardiology and also immediately contacted Dr. Gutierrez on STEMI call who reviewed EKGs and felt that patient was not consistent with a STEMI but certainly had significant ischemic findings and recommended medical therapy.? Given patient history of small amount of blood with her diarrhea we will maintain on cycled H&H's and closely monitor output which was discussed with nursing staff.? Troponin obtained in initial 1997 with most recent repeat 3230.? At approximately 11:30 AM patient became dyspneic therefore Dr. Osborne administered Lasix 20 mg IV x1 and given blood pressures are appropriate at this time will transition to the ICU for a nitroglycerin drip usage with manufacturer consultation also initiated. Patient placed on BIPAP. Admission magnesium low 1.5 with supplementation overnight given, repeat this morning 1.8. FLP requested.? BNP obtained and noted be 150.4.? Echocardiogram requested w/ last noted Zingfin system ECHO 09/14/19 with mildly increased wall LV thickness, normal cavity size, normal systolic function, EF 60 to 65%, no regional wall motion abnormalities, aortic valve with transvalvular velocity increased with mild stenosis, 1+ regurgitation, mean systolic gradient 13 mmHg, peak systolic gradient 26 mmHg, mitral valve moderately calcified, mild MR, mildly dilated LA, RVSP 31 mmHg, mild PV regurgitation, mild TV regurgitation, RA pressure 10 mmHg.?Upon presentation patient history initially concern for gastroenteritis, unclear potentially related with #1 or food related, enteric panel negative, C. difficile negative, initiated on antidiarrheal regimen, initially hydrated however given onset of mild overload is noted number 1 will discontinue and continue to closely monitor.? Patient WBC with significant elevation with left shift therefore be cautious IV Zosyn therapy was initiated 04/14/22. Patient 04/14/22 evaluation with no rebound or guarding and only noted generalized discomfort to the abdomen on exam and given acute presentation w/ cardiac concerns held off on imaging until clinically stable. Maintained on IV PPI with NPO status. Patient with noted also during presentation onset acute on Chronic anemia, normocytic w/ admission hemoglobin was 12.4 altlhough she was notably dehydrated at that time, repeat a.m. 04/14/2022 hemoglobin 10.8, given some blood noted in the diarrhea ordered repeat HH to be cautious. Given precarious cardiac status with notable cardiac history, Dr. Osborne discussed case with Dr. Pierre at [facility] who accepted patient to their cardiac ICU. Patient family amenable to transfer following discussions with Dr. Osborne and amenable to transfer. Discharge Time: > 35 Minutes Weight / BMI Weight Weight: 173 lb 4.533 oz Body Mass Index (BMI) 36.8 ABG / Lab / Microbiology Data Result Diagrams: 04/14/22 06:50 04/14/22 06:50 Laboratory: Laboratory Results - last 24 hr 04/13/22 20:50: WBC 11.3 H, RBC 4.15 L, Hgb 12.4, Hct 39.2, MCV 94.5, MCH 29.9, MCHC 31.6 L, RDW Std Deviation 46.5 H, RDW Coeff of Imelda 13.3, Plt Count 296, MPV 9.4, Immature Gran % (Auto) 0.800, Neut % (Auto) 69.3, Lymph % (Auto) 20.7, Fallon % (Auto) 7.7, Eos % (Auto) 1.0, Baso % (Auto) 0.5, Absolute Neuts (auto) 7.8 H, Absolute Lymphs (auto) 2.34, Nucleated RBC % 0 04/13/22 20:50: Sodium 134 L, Potassium 4.5, Chloride 102, Carbon Dioxide 21.0, Anion Gap 11, BUN 25 H, Creatinine 1.52 H, Estim Creat Clear Calc 36.30, Est GFR (MDRD) Af Amer 42 L, Est GFR (MDRD) Non-Af 35 L, BUN/Creatinine Ratio 16.4, Glucose 224 H, Calcium 9.1, Total Bilirubin 0.40, AST 18, ALT 16, Alkaline Phosphatase 64, Total Protein 6.7, Albumin 3.2, Globulin 3.5, Albumin/Globulin Ratio 0.9 04/13/22 20:50: Phosphorus 4.2, Magnesium 1.5 L 04/13/22 22:58: COVID-19 (CHARLIE) Not Detected 04/14/22 06:13: POC Glucose 191 H 04/14/22 06:50: WBC 18.2 H, RBC 3.61 L, Hgb 10.8 L, Hct 33.2 L, MCV 92.0, MCH 29.9, MCHC 32.5, RDW Std Deviation 44.6 H, RDW Coeff of Imelda 13.2, Plt Count 273, MPV 9.4, Immature Gran % (Auto) 0.500, Neut % (Auto) 88.3 H, Lymph % (Auto) 3.7 L, Fallon % (Auto) 7.3, Eos % (Auto) 0.0, Baso % (Auto) 0.2, Absolute Neuts (auto) 16.1 H, Absolute Lymphs (auto) 0.67 L, Nucleated RBC % 0 04/14/22 06:50: Sodium 132 L, Potassium 4.6, Chloride 103, Carbon Dioxide 20.0 L, Anion Gap 9, BUN 30 H, Creatinine 1.44 H, Estim Creat Clear Calc 36.73, Est GFR (MDRD) Af Amer 45 L, Est GFR (MDRD) Non-Af 37 L, BUN/Creatinine Ratio 20.8 H, Glucose 191 H, Calcium 8.6 04/14/22 06:50: Magnesium 1.2 L 04/14/22 06:50: B-Natriuretic Peptide 150.4 H 04/14/22 08:40: Troponin I High Sens 1998 H* 04/14/22 08:40: Magnesium 1.8 04/14/22 09:00: PT 14.3, INR 1.1, APTT 33.5 04/14/22 10:37: Troponin I High Sens 3230 H* 04/14/22 11:08: POC Glucose 165 H Microbiology: Microbiology 04/13/22 22:37 Stool Stool Lactoferrin - Final 04/13/22 22:37 Stool Enteric Bacteriology - Final 04/13/22 22:37 Stool C. difficile DNA Amplification - Final 04/13/22 20:50 Nasal Secretion SARS-CoV-2 Antigen (Rapid) - Final Radiography Diagnostic Testing: Radiology Impression Chest X-Ray 04/13/22 21:32 IMPRESSION: 1. No evidence of acute cardiopulmonary disease. Degenerative and postsurgical changes as above. Electronically Signed: Louie Curiel DO at 22:49 EDT , Meaningful Use Info Meaningful Use Diagnoses (Choose all that apply): AMI and CHF AMI/Post PCI/Angioplasty Aspirin given w/in 24hrs of arrival?: Yes ASA at discharge?: Yes Antiplatelet Therapy at Discharge:: Yes Statins at discharge?: No Reason statins not ordered:: Allergy Jey/ARB at discharge?: No Reason Jey/ARB not ordered:: Hypotension Beta Ceci at discharge?: No Reason Beta Ceci not ordered:: Hypotension Done w/ Acute AL measure.: Yes Documented LVEF (%): 60 CHF JEY/ARB ordered at discharge?: No Reason JEY/ARB not ordered?: Hypotension Documented LVEF (%): 60 Discharge Plan Admission Admit Date/Time: 04/14/22 11:24 Attending Provider: Shy Patel Primary Care Provider: Genna Mead Consulting Providers: Scott Zaman ; Rafael Osborne ; Sheng Christianson Discharge Orders/Prescriptions Prescriptions: No Action latanoprost 0.005 % drops 1 drp EACH EYE QHS Label Comments: INSTILL 1 DROP INTO EACH EYE AT BEDTIME metformin 500 mg tablet 500 mg PO BID Label Comments: TAKE 1 TABLET BY MOUTH TWICE DAILY lisinopril 20 mg tablet 20 mg PO DAILY Label Comments: TAKE 1 TABLET BY MOUTH ONCE DAILY metoprolol succinate 100 mg tablet extended release 24 hr 100 mg PO DAILY Label Comments: TAKE 1 TABLET BY MOUTH ONCE DAILY clopidogrel 75 mg tablet 75 mg PO DAILY Label Comments: TAKE 1 TABLET BY MOUTH ONCE DAILY amlodipine 5 mg tablet 5 mg PO DAILY Label Comments: TAKE 1 TABLET BY MOUTH ONCE DAILY isosorbide mononitrate 60 mg tablet extended release 24 hr 60 mg PO BID Label Comments: TAKE 1 TABLET BY MOUTH TWICE DAILY citalopram 20 mg tablet 20 mg PO DAILY Label Comments: TAKE 1 TABLET BY MOUTH ONCE DAILY pantoprazole 40 mg tablet,delayed release (DR/EC) 40 mg PO DAILY Label Comments: TAKE 1 TABLET BY MOUTH ONCE DAILY ranolazine 500 mg tablet extended release 12 hr 500 mg PO BID Label Comments: TAKE 1 TABLET BY MOUTH TWICE DAILY Referrals / Follow Up: Wanda Vallejo DO [Non-Staff] - Genna Mead DO [Primary Care Provider] - Disposition Discharge Orders: Discharge Patient (Routine); Ordered 04/14/22 Ordered By: Dr. Shy Patel Charges/Coding Visit Charges Inpatient E&M: 09833 Disch Hosp
[2022-04-14] MEDS: Acetaminophen 325 MG Tablet 650 MG PO (13:23)
[2022-04-14] MEDS: oxyCODONE 5 MG Tablet PO (13:24)
[2022-04-14 14:21] LABS: Hematocrit 29.6 % (37-47); Hemoglobin 9.7 g/dL (12.0-15.0)
[2022-04-14 14:41] LABS: Troponin-I HS 5496 pg/mL (3.0-54.0)
[2022-04-14 17:03] LABS: Partial Thromboplast Time 101.4 Seconds (24.1-36.2)
--- NOTE | 2022-04-14 17:53 | NURSING ---
son, Alvarez, took all belongings including walker home with him
[2022-04-14 18:06] LABS: Bedside Glucose 154 mg/dL (74-106)
== END 2022-04-14 18:00 | disposition short-term general hospital (02) | DRG 280 ==
LOC: ED 22:50 → PCU 23:17 → ICU 04-14 11:37
PROVIDERS: Admitting Provider Internal Medicine; Emergency Provider Emergency Medicine; PCP Family Medicine; Visit Provider Family Medicine
DX: I21.4 Non-ST elevation (NSTEMI) myocardial infarction (principal); I50.31 Acute diastolic (congestive) heart failure; I13.0 Hypertensive heart and chronic kidney disease with heart failure and stage 1 through stage 4 chronic kidney disease, or unspecified chronic kidney disease; K92.1 Melena; E11.22 Type 2 diabetes mellitus with diabetic chronic kidney disease; Z95.1 Presence of aortocoronary bypass graft; N18.30 Chronic kidney disease, stage 3 unspecified; I95.1 Orthostatic hypotension; D63.1 Anemia in chronic kidney disease; E78.5 Hyperlipidemia, unspecified; E87.6 Hypokalemia; F41.9 Anxiety disorder, unspecified; I25.10 Atherosclerotic heart disease of native coronary artery without angina pectoris; K21.9 Gastro-esophageal reflux disease without esophagitis; I25.5 Ischemic cardiomyopathy; I35.0 Nonrheumatic aortic (valve) stenosis; E83.42 Hypomagnesemia; K52.9 Noninfective gastroenteritis and colitis, unspecified; F32.A Depression, unspecified; Z66 Do not resuscitate; Z95.2 Presence of prosthetic heart valve; Z79.02 Long term (current) use of antithrombotics/antiplatelets; Z79.84 Long term (current) use of oral hypoglycemic drugs; Z79.899 Other long term (current) drug therapy; Z87.891 Personal history of nicotine dependence
CPT/HCPCS: 36415; 71045; 80048; 80053; 82962; 83630; 83735; 83880; 84100; 84484; 85014; 85018; 85025; 85610; 85730; 87177; 87209; 87493; 87506; 87635; 87811; 93005; 99285; J7030; J7120; A4216; J1940; J2405; U0003; U0005